=== PATIENT | male | born 1955 | race Hispanic/Latino ===

== ENCOUNTER → 2021-04-17 | Outpatient (CLI) | payer MEDICARE, MEDICAID ==
[~2021-04-17] MED LIST: IOHEXOL-350 50ML VIAL IV ONE
== END | disposition home or self-care (01) ==
LOC: OIH 09:38
PROVIDERS: ATTEND Internal Medicine Gastroenterology
DX: R63.4 Abnormal weight loss (principal); K31.89 Other diseases of stomach and duodenum; K57.90 Diverticulosis of intestine, part unspecified, without perforation or abscess without bleeding; M47.815 Spondylosis without myelopathy or radiculopathy, thoracolumbar region; N32.89 Other specified disorders of bladder
CPT/HCPCS: 74178; Q9967

== ENCOUNTER → 2021-04-24 | Outpatient (CLI) | payer MEDICARE ==
[~2021-04-24] MED LIST changes: +IOHEXOL-300 50 ML VIAL IV ONE; -IOHEXOL-350 50ML VIAL IV ONE
== END | disposition home or self-care (01) ==
LOC: RAH 09:40
PROVIDERS: ATTEND Internal Medicine Gastroenterology
DX: R63.4 Abnormal weight loss (principal)
CPT/HCPCS: 71270; Q9967